=== PATIENT | male | born 1960 | race Caucasian/White ===

== ENCOUNTER 2018-10-13 09:25 | Inpatient (IN) ==
[~2018-10-13 09:25] MED LIST: Sodium Chloride 0.9% 1,000 ML PRIMARY IV ONE
[2018-10-13 09:32] LABS: BASOPHILS # (AUTO) 0.04 10*3/UL; BASOPHILS % (AUTO) 0.4 % (0-1); EOSINOPHILS # (AUTO) 0.02 10*3/UL; EOSINOPHILS % (AUTO) 0.2 % (0-8); Hematocrit [HCT] 48.8 % (42.0-52.0); Hemoglobin [HGB] 15.9 g/dL (14.0-18.0); LYMPHOCYTES # (AUTO) 1.58 10*3/uL; MEAN CORPUSCULAR HEMOGLOBIN 32.8 PG (27-31); MEAN CORPUSCULAR HGB CONC 32.6 g/dL (33-37); MEAN CORPUSCULAR VOLUME 100.6 FL (80-90); MEAN PLATELET VOLUME 10.3 FL (7.4-12.2); MONOCYTES # (AUTO) 1.03 10*3/UL (0.3-0.8); MONOCYTES % (AUTO) 11.3 % (5-15); NEUTROPHILS # (AUTO) 6.38 10*3/UL; NEUTROPHILS % (AUTO) 70.2 % (50-80); RED BLOOD COUNT 4.85 10^6/uL (4.70-6.10)
[2018-10-13 09:33] LABS: PLATELET MORPHOLOGY COMMENT NORMAL MORPHOLOGY (NORM); RBC MORPHOLOGY COMMENT NORMAL MORPHOLOGY (NORM); WBC MORPHOLOGY COMMENT NORMAL MORPHOLOGY (NORM)
--- NOTE | 2018-10-13 09:37 | EKG ---
[address] [address] Measurements Intervals [place] Rate: 87 P: 38 OK: 162 QRS: 61 QRSD: 91 T: 17 QT: 361 QTc: 405 Interpretive Statements SINUS RHYTHM No previous ECG available for comparison Electronically Signed On 10-13-18 18:28:08 MDT by King Flower [email or web address]
[2018-10-13 09:44] LABS: BLOOD UREA NITROGEN 13 mg/dL (7-22); SERUM ALBUMIN 4.8 g/dL (3.5-4.8)
--- NOTE | 2018-10-13 10:27 | DI ---
XR CXR 1VW,10/13/2018 9:25 AM: Clinical History: Fever Previous Exam: None at this facility. Findings: A single frontal radiograph of the chest is obtained, and demonstrates clear lungs. There is question of some subsegmental atelectasis in the left lung base. The cardiomediastinum and bony thorax are un remarkable. Impression: No acute cardiopulmonary disease.
[2018-10-13 10:34] LABS: BILIRUBIN,URINE NEGATIVE (NEG); CLARITY,URINE CLEAR (CLEAR); COLOR,URINE YELLOW (Y); GLUCOSE, URINE (UA) NEGATIVE (NEG); OCCULT BLOOD,URINE NEGATIVE (NEG); PROTEIN,URINE NEGATIVE (NEG); UROBILINOGEN,URINE 0.2 EU/dL (0.2)
[2018-10-13 10:38] LABS: URINE SAMPLE TYPE CLEAN CATCH URINE
[2018-10-13 10:41] LABS: URINE SPECIFIC GRAVITY - MAN 1.012
--- NOTE | 2018-10-13 10:51 | PDOC ---
General Adult HPI - General Chief Complaint: Neurological Complaints Stated Complaint: MENTAL STATUS CHANGE Date Seen by Provider: 10/13/18 Time Seen by Provider: 09:30 Source: POSITIVE: Patient, Spouse, EMS Exam Limitations: POSITIVE: Clinical condition Nurse's Notes Reviewed & Considered: Yes EMS Report Reviewed & Considered: Verbal - History of Present Illness Initial Comment: The patient is a 57-year-old male who presents to the emergency department by ambulance with increased generalized weakness, confusion and fever. The patient's reports that 3 or 4 days ago the patient was complaining of generalized aches and malaise. She states that for the past 2 days he has pretty much been sleeping most of the time and has been intermittently running a fever with temp measured at 101.5 yesterday evening. This morning his reports that he seemed more confused and could hardly keep his eyes open. He seemed to be having a hard time moving around secondary generalized pain and EMS was subsequently called. When they arrived on scene the patient appeared to be dehydrated, other vital signs were unremarkable. He would awaken and would answer his name but was not giving much other history when EMS arrived. An EKG done on scene showed a normal sinus rhythm with no acute ST segment or T-wave changes. His blood sugar on arrival was 102. An IV was established and a fluid bolus was initiated and the patient was transferred here to the emergency department for further evaluation. On arrival here he is slightly more alert. He denies any complaints of headache, chest pain, abdominal pain. He does report generalized pain especially in his legs. He does have a history of chronic back pain and previously took morphine and hydrocodone however he has not taken any pain medication for his back for the past 3 or 4 years. He denies taking any perception medications currently. His states he is aspirin sometime yesterday evening. He has not eaten or drank very much for the past 2 days. He'll have any other significant medical history. Have you received a tetanus shot in the past 10 years?: Unknown - Patient Home Medications Home Medications: Home Medications NK 10/13/18 - Patient Allergies Allergies/Adverse Reactions: Allergies Allergy/AdvReac Type Severity Reaction Status Date / Time No Known Allergies Allergy Unverified 05/03/12 00:36 Past Medical History - heen HEENT History: Denies History Cardiovascular History: Denies History Respiratory History: Denies History Gastrointestinal History: Denies History Genitourinary History: Denies History Endocrine History: Denies History Musculoskeletal History: Back Pain, Back Injury Prosthesis or Implant: No Neurological History: Denies History Blood Disorders: Denies History Psychiatric History: Denies History History of Sexually Transmitted Diseases: No Male Reproductive History: Denies History Cancer History: Denies History In Past Year Been Physically Harmed or Verbally Threatened: No History of MDRO: No History of Other Communicable Diseases: No Tobacco Use: Never Smoker Alcohol Use: None In the Past 12 Months, Have Used or Abuse Any Substance: None Previous Surgical History: No Anesthesia Reactions: No Malignant Hyperthermia: No Significant Family History: No pertinent family hx Past Medical History Reviewed: Reviewed - No Changes ROS - Limitations ROS Limitations: No Limitations Constitution: REPORTS: Chills, Fever, Weakness (Generalized weakness) Cardiovascular: DENIES: Chest Pain, Edema Respiratory: DENIES: Cough Non Productive, Cough Productive, Shortness Of Breath Neurological: REPORTS: Confusion. DENIES: Headache, Numbness, Weakness (Weakness) Gastrointestinal: DENIES: Abdominal Pain, Nausea, Vomitting, Diarrhea Endocrine: REPORTS: Fatigue Musculoskeletal: REPORTS: Back Pain (Chronic back pain), Muscle Aches. DENIES: Lower Extremity Swelling Genitourinary: REPORTS: Denies Symptoms Eyes: DENIES: Vision Changes ENT: DENIES: Congestion, Sore Throat Skin: DENIES: Rash General Adult Exam - General Appearance General Appearance: POSITIVE: Other (And does answer questions on arrival to the emergency department, he does follow commands although he is somewhat slow. He appears to be significantly dehydrated) - HEENT HEENT: POSITIVE: Head Inspection Nml, Eyes Inspection Nml, Ears Inspection Nml, Pharynx Inspect. Nml, PERRL, EOMI, Dry Mucous Membranes - Neck Neck: POSITIVE: Normal Inspection. NEGATIVE: Lymphadenopathy - Respiratory Respiratory: POSITIVE: No Respiratory Distress, Breath Sounds Normal - Cardiovascular Cardiovascular: POSITIVE: Regular Rate & Rhythm, No Murmur Peripheral Pulses: Dorsalis-pedis (R): 2+, Dorsalis-pedis (L): 2+ - Abdomen Abdomen: Soft: (All Quadrants), Denies Tenderness: (All Quadrants), No Distention: (All Quadrants) - Skin Skin: POSITIVE: Normal Color, No Rash - Extremities Extremity: Normal ROM: (All Extremities), Normal Inspection: (All Extremities) Additional Extremities Details: He does have generalized pain in his legs with attempts to move them - Neurological / Psychological Neurological: POSITIVE: eight section blower Normal As Tested, Motor Normal, Sensation Normal, Other (The patient does not appear to have any focal neurologic deficits. He does awaken and will answer questions although he is somewhat slow to respond and general and appears to be somewhat confused. He does follow commands.) Procedures - Lumbar Puncture Risks, Benefits, & Alternatives Discussed: Yes Lumbar Puncture Technique: POSITIVE: Sitting Procedure Note:: After informed consent the patient was placed in the sitting position. Landmarks were identified. Sterile drape was placed in the insertion site was cleansed with iodine. The skin was infiltrated with lidocaine and the deeper tissues were infiltrated with lidocaine. The spinal needle was advanced and repositioned several times without any return of fluid. A second attempt at a slightly different angle also was unsuccessful. Decision was made to abandon continued attempts in favor of x-ray guided procedure in radiology. General Adult Progress - Results Reviewed by me Xrays/CTs/US Reviewed by me: Yes Discussed with Radiologist: Yes Radiology Findings: Is no acute abnormalities per radiologist. Lab Results Reviewed by Me: Yes Lab Results:: Laboratory Results 10/13/18 10/13/18 10/13/18 08:59 08:59 08:59 WBC 9.10 RBC 4.85 Hgb 15.9 Hct 48.8 MCV 100.6 H MCH 32.8 H MCHC 32.6 L RDW Std Deviation 45.0 RDW Coeff of Flavia 12.2 Plt Count 264 MPV 10.3 Immature Gran % (Auto) 0.5 Neut % (Auto) 70.2 Lymph % (Auto) 17.4 [place] % (Auto) 11.3 Eos % (Auto) 0.2 Baso % (Auto) 0.4 Immature Gran # (Auto) 0.05 Neut # (Auto) 6.38 Lymph # (Auto) 1.58 [place] # (Auto) 1.03 H Eos # (Auto) 0.02 Baso # (Auto) 0.04 WBC Morphology Comment Normal morphology Plt Morphology Comment Normal morphology RBC Morph Comment Normal morphology VBG pH VBG pCO2 VBG HCO3 VBG Base Excess Sodium 140 Potassium 4.8 Chloride 103 Carbon Dioxide 25 Anion Gap 12 BUN 13 Creatinine 1.0 Estimated GFR > 60 BUN/Creatinine Ratio 13.00 Glucose 107 Calculated Osmolality 289.0 Lactic Acid 1.4 Calcium 9.3 Magnesium 2.4 Total Bilirubin 2.3 H AST 41 ALT 41 Alkaline Phosphatase 81 Total Creatine Kinase 36 L Troponin I C-Reactive Protein < 0.5 NT-Pro-B Natriuret Pep 39.9 Total Protein 8.7 H Albumin 4.8 Globulin 3.9 Albumin/Globulin Ratio 1.20 L TSH Free T4 Ur Collection Type Urine Color Urine Clarity Urine pH Ur Specific [place] U Specif Grav (Refrac) Urine Protein Urine Glucose (UA) Urine Ketones Urine Occult Blood Urine Nitrate Urine Bilirubin Urine Urobilinogen Ur Leukocyte Esterase Ur Culture Indicated? CSF Volume CSF Appearance CSF Color CSF WBC CSF RBC CSF Neutrophils CSF Lymphocytes CSF Mononuclear WBCs CSF Glucose CSF Total Protein Urine Opiates Screen Ur Buprenorphine Ur Oxycodone Screen Urine Methadone Screen Ur Propoxyphene Screen Barbiturate Screen U Tricyclic Antidepress Phencyclidine Screen Amphetamines Screen U Methamphetamines Scrn Benzodiazepines Screen Cocaine Screen U Marijuana (THC) Screen Serum Alcohol < 10 10/13/18 10/13/18 10/13/18 08:59 08:59 10:10 WBC RBC Hgb Hct MCV MCH MCHC RDW Std Deviation RDW Coeff of [place] Plt Count MPV Immature Gran % (Auto) Neut % (Auto) Lymph % (Auto) [place] % (Auto) Eos % (Auto) Baso % (Auto) Immature Gran # (Auto) Neut # (Auto) Lymph # (Auto) [place] # (Auto) Eos # (Auto) Baso # (Auto) WBC Morphology Comment Plt Morphology Comment RBC Morph Comment VBG pH 7.35 VBG pCO2 45 VBG HCO3 25 VBG Base Excess 0 Sodium Potassium Chloride Carbon Dioxide Anion Gap BUN Creatinine Estimated GFR BUN/Creatinine Ratio Glucose Calculated Osmolality Lactic Acid Calcium Magnesium Total Bilirubin AST ALT Alkaline Phosphatase Total Creatine Kinase Troponin I < 0.012 C-Reactive Protein NT-Pro-B Natriuret Pep Total Protein Albumin Globulin Albumin/Globulin Ratio TSH 7.03 H Free T4 0.76 L Ur Collection Type Urine Color Urine Clarity Urine pH Ur Specific [place] U Specif Grav (Refrac) Urine Protein Urine Glucose (UA) Urine Ketones Urine Occult Blood Urine Nitrate Urine Bilirubin Urine Urobilinogen Ur Leukocyte Esterase Ur Culture Indicated? CSF Volume CSF Appearance CSF Color CSF WBC CSF RBC CSF Neutrophils CSF Lymphocytes CSF Mononuclear WBCs CSF Glucose CSF Total Protein Urine Opiates Screen Ur Buprenorphine Ur Oxycodone Screen Urine Methadone Screen Ur Propoxyphene Screen Barbiturate Screen U Tricyclic Antidepress Phencyclidine Screen Amphetamines Screen U Methamphetamines Scrn Benzodiazepines Screen Cocaine Screen U Marijuana (THC) Screen Serum Alcohol 10/13/18 10/13/18 10:25 13:12 WBC RBC Hgb Hct MCV MCH MCHC RDW Std Deviation RDW Coeff of [place] Plt Count MPV Immature Gran % (Auto) Neut % (Auto) Lymph % (Auto) [place] % (Auto) Eos % (Auto) Baso % (Auto) Immature Gran # (Auto) Neut # (Auto) Lymph # (Auto) [place] # (Auto) Eos # (Auto) Baso # (Auto) WBC Morphology Comment Plt Morphology Comment RBC Morph Comment VBG pH VBG pCO2 VBG HCO3 VBG Base Excess Sodium Potassium Chloride Carbon Dioxide Anion Gap BUN Creatinine Estimated GFR BUN/Creatinine Ratio Glucose Calculated Osmolality Lactic Acid Calcium Magnesium Total Bilirubin AST ALT Alkaline Phosphatase Total Creatine Kinase Troponin I C-Reactive Protein NT-Pro-B Natriuret Pep Total Protein Albumin Globulin Albumin/Globulin Ratio TSH Free T4 Ur Collection Type Clean catch urine Urine Color Yellow Urine Clarity Clear Urine pH 6.0 Ur Specific [place] 1.010 U Specif Grav (Refrac) 1.012 Urine Protein Negative Urine Glucose (UA) Negative Urine Ketones 15 Urine Occult Blood Negative Urine Nitrate Negative Urine Bilirubin Negative Urine Urobilinogen 0.2 Ur Leukocyte Esterase Negative Ur Culture Indicated? Culture not set CSF Volume 8 CSF Appearance Clear CSF Color Colorless CSF WBC 0.014 H CSF RBC 0.001 CSF Neutrophils 7.1 CSF Lymphocytes Not Reportable CSF Mononuclear WBCs 92.9 CSF Glucose 60 CSF Total Protein 90 H Urine Opiates Screen Negative Ur Buprenorphine Negative Ur Oxycodone Screen Negative Urine Methadone Screen Negative Ur Propoxyphene Screen Negative Barbiturate Screen Negative U Tricyclic Antidepress Negative Phencyclidine Screen Negative Amphetamines Screen Negative U Methamphetamines Scrn Negative Benzodiazepines Screen Negative Cocaine Screen Negative U Marijuana (THC) Screen Negative Serum Alcohol CBC and BMP: 10/13/18 08:59 10/13/18 08:59 EKG Interpreted/Reviewed By Me:: Yes EKG Interpretation:: POSITIVE: Normal Sinus Rhythm, Normal Rate, Normal QRS, Normal ST/T - Patient's Progress MDM / ED Course: On arrival to the emergency department the patient did appear to be significantly dehydrated. He did receive a 1 L fluid bolus with normal saline. EKG was repeated here and shows a normal sinus rhythm with no acute ST segment or T-wave changes. Blood work is all essentially unremarkable with a normal white count, normal CRP and normal lactic acid. Electrolytes are all within normal limits and blood sugar is normal. Troponin is normal. CPK is normal. TSH is slightly elevated and his free T4 is mildly depressed. A TSH last done in 2009 was also slightly elevated. Urinalysis showed no evidence of infection and was otherwise unremarkable. Tox screens are negative. Head CT shows no acute abnormalities and chest x-ray is read as normal per radiologist. Because of increased confusion and fevers decision was made to perform lumbar puncture. Unfortunately this was unsuccessful here in the emergency department. Dr. Blank from radiology performed an x-ray guided lumbar puncture and was successful. Spinal fluid was sent to the lab for analysis. This does show 14 white blood cells which are predominantly monocytes, the glucose level is normal at 60 and protein level is elevated at 90. The meningitis PCR was negative for pathogens. The patient was somewhat more alert and less confused after administration of fluids. His clinical presentation appears to be consistent with a viral syndrome and associated viral meningitis/encephalitis. Spinal fluid has also been set up for culture as well as sent out for West Nile virus. The patient's does report that he had a mosquito bite 4 or 5 days ago on his knuckle. These findings were discussed with the patient and his . Decision was made to admit the patient for further treatment and monitoring. I did discuss the patient with Dr. Damian and he is agreed to accept the patient care. He did recommend administration of acyclovir 1 g IV which was given. - Consult Counseled: POSITIVE: Patient, Family, RE: Lab Results, RE: Radiology Results, RE: DX Patient Care Time - Estimated PCT Patient Care Time (In Minutes): 50 Vital Signs - Recent Vital Signs Vital Signs: Vital Signs (Last 8 hours) Temp Pulse Resp BP Pulse Ox 10/13/18 14:59 98.3 F 86 18 107/91 96 10/13/18 12:00 98.9 F 89 16 123/76 97 10/13/18 10:30 98.9 F 10/13/18 09:30 98.7 F 80 16 130/76 94 10/13/18 09:29 98.7 F 80 16 130/76 94 - VS Reviewed Vital Signs Reviewed: Yes Discharge Clinical Impression: Change in mental status, Viral encephalitis, Dehydration Discharge Disposition: Admit to Inpatient Condition: Stable Patient Problem(s) Reviewed: Yes Date Decision to Admit to Inpatient: 10/13/18 Time Decision to Admit to Inpatient: 14:30
[2018-10-13 10:53] LABS: AMPHETAMINE SCREEN NEGATIVE (NEG); CANNABINOID SCREEN,URINE NEGATIVE (NEG); COCAINE SCREEN NEGATIVE (NEG); METHADONE URINE SCREEN NEGATIVE (NEG); METHAMPHETAMINES SCREEN,URINE NEGATIVE (NEG); OPIATE SCREEN,URINE NEGATIVE (NEG)
--- NOTE | 2018-10-13 11:03 | DI ---
CT Head WO Contrast,10/13/2018 9:25 AM: Clinical History: Confusion Previous Exam: None at this facility. Findings: Multiple helically acquired CT images are obtained through the brain without contrast, and demonstrat e mild diffuse age-related volume loss. There is no mass, hemorrhage or midline shift. Surrounding so ft tissue and osseous structures are unremarkable. Impression: Mild diffuse age-related volume loss without acute intracranial pathology.
[2018-10-13] MEDS ORDERED: Lidocaine 1% 10 MG/ML - 20 ML VIAL SUBCUT ONE (11:14)
[2018-10-13] MEDS ORDERED: fentaNYL Inj 100 MCG/2 ML VIAL IVP ONE (11:42)
[2018-10-13] MEDS ORDERED: fentaNYL Inj 100 MCG/2 ML VIAL ONE (11:43)
[2018-10-13 13:35] LABS: APPEARANCE, CSF CLEAR (CLEAR); COLOR, CSF COLORLESS (COLOR)
[2018-10-13] MEDS ORDERED: Sodium Chloride 0.9% 1,000 ML PRIMARY IV ONE (14:14)
[2018-10-13 14:41] LABS: VENOUS PH 7.35 (7.32-7.42)
[2018-10-13 15:00] VITALS: RESP 18
[2018-10-13] MEDS ORDERED: ONDANSETRON 4 MG/2 ML VIAL IVP PRN (15:20)
[2018-10-13] MEDS ORDERED: DOCUSATE 100 MG CAPSULE PO PRN (15:20)
[2018-10-13] MEDS ORDERED: HYDROmorphone 2 MG/1 ML IVP PRN (15:20)
[2018-10-13] MEDS ORDERED: CALCIUM CARBONATE 500 MG (TUMS) CHEWABLE TABLET PO PRN (15:20)
[2018-10-13] MEDS ORDERED: LIDOCAINE W/ SODIUM BICARB 0.5 ML SYR SUBD PRN (15:20)
[2018-10-13] MEDS ORDERED: D5-1/2NS + 20mEq KCL 1,000 ML PRIMARY IV SCH (15:20)
[2018-10-13] MEDS ORDERED: KETOROLAC 15 MG/1 ML VIAL IVP PRN (15:20)
[2018-10-13] MEDS ORDERED: ACETAMINOPHEN 325 MG TABLET PO PRN (15:20)
[2018-10-13 15:26] VITALS: BP 129/75; TEMP 100; O2SAT 94
[2018-10-13] MEDS ORDERED: Sodium Chloride 0.9% 1,000 ML PRIMARY IV SCH (16:15)
--- NOTE | 2018-10-13 16:18 | PDOC ---
HPI - History of Present Illness Date of Service: 10/13/18 Time of Service: 16:13 Chief Complaint: Confusion and fever History of Present Illness: This is a very pleasant 57-year-old male who is brought in by ambulance this morning as his noticed that he was quite confused. He's had a fever as high as 101.5F over the last 3 days, with no other symptoms of cough, nausea or vomiting, diarrhea, or breathing difficulties. He's never had anything like this happen before. Apparently over the last 36 hours, the patient is been more confused. The patient's reports that she tried to get him to eat today, and he could not even lift a spoon to his mouth he was so confused. The patient had a lumbar puncture in the emergency room that showed an elevated protein level and 14 white blood cells. They were mostly monocytes. He is not on any medications and has not had any pain medications at home. He just recently established with the [facility] in [place]. The patient has also had progressive weakness in his upper extremities according to his . He's needed some assistance ambulating but has been able to ambulate. I did some reflexes on exam and found that his upper extremity reflexes were slightly diminished but his lower extremity reflexes are hyperreflexic for the patellar tendon. The patient has not had any recent upper respiratory infection and has not had any diarrhea. He had a head CT scan that was negative for bleed. It was read as having mild age related diffuse volume loss. I was concerned about the patient's presentation with confusion as at a minimum I think he has meningitis, and here thus far, studies are negative for any particular ideology. They do use the biofire profile here, but it was negative. He recently got back from a trip to [place] in 1 through several states including [place], [place], [place], [place], [place], amongst others. He has not had any recent vaccines. The patient himself cannot provide me very much history. He knows now that he is in the hospital and is in [place] but does not know the date, time, or situation. I spoke with the neurologist in [place], along with primary admitting team, and they graciously agreed [place] [facility] Incidentally, I did note that the TSH was elevated and free T4 is depressed. Past Medical History Medical History: No prior medical issues Surgical History: 1. Ankle surgery related to a traumatic fall off a ladder. Pertinent Family History: Mother had breast cancer. Father had a goiter and th yroid problems as did his maternal grandmother Past Social History: Does not smoke or drink. for over 30 years. 4 children that are described as healthy. Tobacco Use: Never Smoker In the Past 12 Months, Have Used or Abuse Any of the Following Substance: None Alcohol Use: None Medication / Allergies Home Medications: Home Medications Medication Instructions Recorded Confirmed NK 10/13/18 10/13/18 Allergies/Adverse Reactions: Allergies Allergy/AdvReac Type Severity Reaction Status Date / Time No Known Allergies Allergy Unverified 05/03/12 00:36 Review of Systems - Review of Systems ROS Unobtainable: Due to Mental Status (Due to the patient's confusion, I cannot obtain an adequate review systems. Specifically, however, the patient denies any chest pain, shortness of breath, nausea or vomiting, prostate problems, kidney problems, bladder problems, or history of seizures.) Exam - Vitals Vital Signs: Vital Signs Temperature 100.0 F Temperature Source Oral Pulse Rate [Pulse Oximeter] 89 Respiratory Rate 18 Blood Pressure [Left Arm] 129/75 Pulse Ox 94 Oxygen Delivery Method Room Air Height 5 ft 9 in Weight 190 lb - General General Appearance: No Acute Distress, Cooperative - Head Head Exam: Normal Inspection, Normocephalic, Atraumatic - Eye Eye Exam: POSITIVE: No Scleral Icterus Additional Eye Exam Details: Poor dentition with missing teeth - ENT ENT Exam: POSITIVE: Mucous Membranes Dry - Neck Neck Exam: Normal Inspection, No Tenderness, No Lymphadenopathy, No Thyromegaly, JVP is not Raised - Respiratory Respiratory Exam: POSITIVE: Clear to Auscultation - Bilaterally, Breathing Non Labored, Normal to Percussion and Palpation - Cardiovascular Cardiovascular Exam: POSITIVE: RRR, No Murmur, No Clicks, No Gallops, No Rubs, PMI Non-Displaced, No JVD - GI/Abdominal GI/Abdominal Exam: POSITIVE: Normal Bowel Sounds, Non Tender, Non Distended, Soft - Rectal Rectal Exam: POSITIVE: Deferred - External Exam: POSITIVE: Deferred Exam: POSITIVE: Deferred - Extremities Extremities Exam: POSITIVE: No Clubbing Present, No Edema Present, No Cyanosis Present - Back Back Exam: POSITIVE: No CVA Tenderness - Neurological Neurological Exam: POSITIVE: Alert, CN II-XII Intact, No Facial Droop, Speech Intact / Clear Additional Neurological Exam Details: Has +4 over 5 muscle strength for upper extremities bilaterally. Brachial refle x and triceps reflexes are diminished but present. Hyperreflexive for patellar reflexes bilaterally in the lower extremities. Oriented to person and now knows place, but not oriented to time or situation. - Integumentary Integumentary Exam: POSITIVE: Normal Color, Warm, Dry, Intact - Central Line Examination Central Line Present on Admission: No Results - Labs CBC and BMP: 10/13/18 08:59 10/13/18 08:59 Additional Lab Results: Laboratory Results 10/13/18 10/13/18 10/13/18 08:59 08:59 08:59 WBC 9.10 RBC 4.85 Hgb 15.9 Hct 48.8 MCV 100.6 H MCH 32.8 H MCHC 32.6 L RDW Std Deviation 45.0 RDW Coeff of Flavia 12.2 Plt Count 264 MPV 10.3 Immature Gran % (Auto) 0.5 Neut % (Auto) 70.2 Lymph % (Auto) 17.4 [place] % (Auto) 11.3 Eos % (Auto) 0.2 Baso % (Auto) 0.4 Immature Gran # (Auto) 0.05 Neut # (Auto) 6.38 Lymph # (Auto) 1.58 [place] # (Auto) 1.03 H Eos # (Auto) 0.02 Baso # (Auto) 0.04 WBC Morphology Comment Normal morphology Plt Morphology Comment Normal morphology RBC Morph Comment Normal morphology VBG pH VBG pCO2 VBG HCO3 VBG Base Excess Sodium 140 Potassium 4.8 Chloride 103 Carbon Dioxide 25 Anion Gap 12 BUN 13 Creatinine 1.0 Estimated GFR > 60 BUN/Creatinine Ratio 13.00 Glucose 107 Calculated Osmolality 289.0 Lactic Acid 1.4 Calcium 9.3 Magnesium 2.4 Total Bilirubin 2.3 H AST 41 ALT 41 Alkaline Phosphatase 81 Total Creatine Kinase 36 L Troponin I C-Reactive Protein < 0.5 NT-Pro-B Natriuret Pep 39.9 Total Protein 8.7 H Albumin 4.8 Globulin 3.9 Albumin/Globulin Ratio 1.20 L TSH Free T4 Ur Collection Type Urine Color Urine Clarity Urine pH Ur Specific [place] U Specif Grav (Refrac) Urine Protein Urine Glucose (UA) Urine Ketones Urine Occult Blood Urine Nitrate Urine Bilirubin Urine Urobilinogen Ur Leukocyte Esterase Ur Culture Indicated? CSF Volume CSF Appearance CSF Color CSF WBC CSF RBC CSF Neutrophils CSF Lymphocytes CSF Mononuclear WBCs CSF Glucose CSF Total Protein Urine Opiates Screen Ur Buprenorphine Ur Oxycodone Screen Urine Methadone Screen Ur Propoxyphene Screen Barbiturate Screen U Tricyclic Antidepress Phencyclidine Screen Amphetamines Screen U Methamphetamines Scrn Benzodiazepines Screen Cocaine Screen U Marijuana (THC) Screen Serum Alcohol < 10 10/13/18 10/13/18 10/13/18 08:59 08:59 10:10 WBC RBC Hgb Hct MCV MCH MCHC RDW Std Deviation RDW Coeff of Flavia Plt Count MPV Immature Gran % (Auto) Neut % (Auto) Lymph % (Auto) [place] % (Auto) Eos % (Auto) Baso % (Auto) Immature Gran # (Auto) Neut # (Auto) Lymph # (Auto) [place] # (Auto) Eos # (Auto) Baso # (Auto) WBC Morphology Comment Plt Morphology Comment RBC Morph Comment VBG pH 7.35 VBG pCO2 45 VBG HCO3 25 VBG Base Excess 0 Sodium Potassium Chloride Carbon Dioxide Anion Gap BUN Creatinine Estimated GFR BUN/Creatinine Ratio Glucose Calculated Osmolality Lactic Acid Calcium Magnesium Total Bilirubin AST ALT Alkaline Phosphatase Total Creatine Kinase Troponin I < 0.012 C-Reactive Protein NT-Pro-B Natriuret Pep Total Protein Albumin Globulin Albumin/Globulin Ratio TSH 7.03 H Free T4 0.76 L Ur Collection Type Urine Color Urine Clarity Urine pH Ur Specific [place] U Specif Grav (Refrac) Urine Protein Urine Glucose (UA) Urine Ketones Urine Occult Blood Urine Nitrate Urine Bilirubin Urine Urobilinogen Ur Leukocyte Esterase Ur Culture Indicated? CSF Volume CSF Appearance CSF Color CSF WBC CSF RBC CSF Neutrophils CSF Lymphocytes CSF Mononuclear WBCs CSF Glucose CSF Total Protein Urine Opiates Screen Ur Buprenorphine Ur Oxycodone Screen Urine Methadone Screen Ur Propoxyphene Screen Barbiturate Screen U Tricyclic Antidepress Phencyclidine Screen Amphetamines Screen U Methamphetamines Scrn Benzodiazepines Screen Cocaine Screen U Marijuana (THC) Screen Serum Alcohol 10/13/18 10/13/18 10:25 13:12 WBC RBC Hgb Hct MCV MCH MCHC RDW Std Deviation RDW Coeff of Flavia Plt Count MPV Immature Gran % (Auto) Neut % (Auto) Lymph % (Auto) [place] % (Auto) Eos % (Auto) Baso % (Auto) Immature Gran # (Auto) Neut # (Auto) Lymph # (Auto) [place] # (Auto) Eos # (Auto) Baso # (Auto) WBC Morphology Comment Plt Morphology Comment RBC Morph Comment VBG pH VBG pCO2 VBG HCO3 VBG Base Excess Sodium Potassium Chloride Carbon Dioxide Anion Gap BUN Creatinine Estimated GFR BUN/Creatinine Ratio Glucose Calculated Osmolality Lactic Acid Calcium Magnesium Total Bilirubin AST ALT Alkaline Phosphatase Total Creatine Kinase Troponin I C-Reactive Protein NT-Pro-B Natriuret Pep Total Protein Albumin Globulin Albumin/Globulin Ratio TSH Free T4 Ur Collection Type Clean catch urine Urine Color Yellow Urine Clarity Clear Urine pH 6.0 Ur Specific [place] 1.010 U Specif Grav (Refrac) 1.012 Urine Protein Negative Urine Glucose (UA) Negative Urine Ketones 15 Urine Occult Blood Negative Urine Nitrate Negative Urine Bilirubin Negative Urine Urobilinogen 0.2 Ur Leukocyte Esterase Negative Ur Culture Indicated? Culture not set CSF Volume 8 CSF Appearance Clear CSF Color Colorless CSF WBC 0.014 H CSF RBC 0.001 CSF Neutrophils 7.1 CSF Lymphocytes Not Reportable CSF Mononuclear WBCs 92.9 CSF Glucose 60 CSF Total Protein 90 H Urine Opiates Screen Negative Ur Buprenorphine Negative Ur Oxycodone Screen Negative Urine Methadone Screen Negative Ur Propoxyphene Screen Negative Barbiturate Screen Negative U Tricyclic Antidepress Negative Phencyclidine Screen Negative Amphetamines Screen Negative U Methamphetamines Scrn Negative Benzodiazepines Screen Negative Cocaine Screen Negative U Marijuana (THC) Screen Negative Serum Alcohol - EKG Data -: EKG Interpreted by Me Rate: Normal EKG Shows Normal: Sinus Rhythm - Imaging Status: Image Reviewed by Me (I looked at the chest x-ray, there is probably atelectasis in left lower base. I looked at the CT scan of the head, and there is no bleed.) Assessment and Plan - Patient Problems (1) Encephalitis Current Visit: Yes Status: Acute Code(s): G04.90 - Encephalitis and encephalomyelitis, unspecified (2) Meningoencephalitis Current Visit: Yes Status: Acute Code(s): G04.90 - Encephalitis and encephalomyelitis, unspecified - Assessment / Plan Additional Assessment/Plan Details: The patient's altered mental status and confusion are very concerning, and I think that being a critical care [facility], we are more than capable of managing a meningitis, but an encephalitis is probably not appropriate for level of care. I'm grateful to [facility] [place] [facility] for their input in management of the patient here and being willing to accept the patient for further evaluation and management at [facility]. My deeper concern would be that this is a variant or atypical presentation of Guian Holland syndrome, although when I spoke with the neurol ogist, he seemed to believe that this would not be the case. Thus far viral cultures are pending. Blood cultures have been drawn and are pending. I see no evidence to support a bacterial infection at this point so I'm going to hold off on antibiotics. Tylenol for fever when necessary. IV fluids and supportive care. Further management as per physicians at [facility] I do think the patient needs thyroid supplementation and I do suspect he has hypothyroid and that this is not anomalous in the setting of an acute event
--- NOTE | 2018-10-13 16:27 | DCSUMMARY ---
Hospitalization Summary Admit Date: 10/13/2018 Discharge Date: 10/13/18 Primary Diagnosis:: meningo encephalitis Hospital Course: Please refer to history and physical exam dictated earlier as this is a same day admission and discharge Exam - Vitals Vital Signs: Vital Signs Patient Problems - Patient Problem List (1) Encephalitis Current Visit: Yes Status: Acute Code(s): G04.90 - Encephalitis and encephalomyelitis, unspecified Category: Medical (2) Meningoencephalitis Current Visit: Yes Status: Acute Code(s): G04.90 - Encephalitis and encephalomyelitis, unspecified Category: Medical
[2018-10-13] MEDS ORDERED: Acetaminophen 1000mg Inj 1,000 MG/100 ML VIAL IV PRN (16:55)
== END 2018-10-13 17:10 | disposition short-term general hospital (02) | DRG 640 ==
LOC: ER 09:25 → MED/SURG 15:05
PROVIDERS: ADMIT Family Medicine; ATTEND Family Medicine